=== PATIENT | male | born 1975 | race Caucasian/White ===

== ENCOUNTER 2021-06-09 14:19 | Emergency (ER) | payer BC ==
[2021-06-09] MEDS ORDERED: Sodium Chloride 0.9% 10 ML Syringe FLUSH PRN (14:54)
--- NOTE | 2021-06-09 14:54 | EDM.PDOC ---
ED HPI GENERAL MEDICAL PROBLEM - General Stated Complaint: ABD PAIN/RECTAL BLEEDING Time Seen by Provider: 06/09/21 14:45 Source of Information: Reports: Patient History Limitations: Reports: No Limitations - History of Present Illness INITIAL COMMENTS - FREE TEXT/NARRATIVE: Patient presented to the ED because of bright red blood in stool which started this morning. The pain is sharp and cramping, 2/10 with associated nausea but no vomiting. There is no fever, chills, cough/cold symptpms. No UTI s/s. He has a history of chronic low back pain and is taking advil 200 mg every morning. Abdomen Pain Score (Numeric/FACES): 2 - Related Data Allergies Allergy/AdvReac Type Severity Reaction Status Date / Time No Known Allergies Allergy Verified 06/09/21 15:00 Home Meds: Home Meds Azithromycin [Zithromax] 500 mg PO DAILY #5 tab 06/09/21 [Rx] metroNIDAZOLE [Flagyl] 500 mg PO Q8H #21 tab 06/09/21 [Rx] ED ROS GENERAL - Review of Systems Review Of Systems: See Below Constitutional: Reports: No Symptoms HEENT: Reports: No Symptoms Respiratory: Reports: No Symptoms Cardiovascular: Reports: No Symptoms Endocrine: Reports: No Symptoms GI/Abdominal: Reports: Abdominal Pain, Bloody Stool, Nausea : Reports: No Symptoms Musculoskeletal: Reports: No Symptoms Skin: Reports: No Symptoms Neurological: Reports: No Symptoms Psychiatric: Reports: No Symptoms Hematologic/Lymphatic: Reports: No Symptoms ED EXAM, GENERAL - Physical Exam Exam: See Below Exam Limited By: No Limitations General Appearance: Alert, No Apparent Distress Eye Exam: Bilateral Eye: PERRL Ears: Normal External Exam, Normal Canal, Normal TMs Nose: Normal Inspection, Normal Mucosa, No Blood Throat/Mouth: Normal Inspection, Normal Lips, Normal Teeth, Normal Oropharynx, Normal Voice Head: Atraumatic, Normocephalic Neck: Normal Inspection, Supple, Non-Tender, Full Range of Motion Respiratory/Chest: No Respiratory Distress, Lungs Clear, Normal Breath Sounds, No Accessory Muscle Use, Chest Non-Tender Cardiovascular: Normal Peripheral Pulses, Regular Rate, Rhythm, No Edema, No Gallop, No JVD, No Murmur, No Rub GI/Abdominal: Normal Bowel Sounds, Soft, No Organomegaly, No Distention, No Abnormal Bruit, No Mass, Pelvis Stable, Other (tenderness LLQ and Suprapubic area) Back Exam: Normal Inspection Extremities: Normal Inspection, Normal Range of Motion, Non-Tender, No Pedal Edema, Normal Capillary Refill Neurological: Alert, Oriented, CN II-XII Intact, Normal Cognition, Normal Gait, Normal Reflexes, No Motor/Sensory Deficits Course - Vital Signs Text/Narrative:: Lab/CT abd-pelvis result was result was reviewed and discussed with patient NS 1 L bolus - Orders/Labs/Meds Orders: Active Orders 24 hr Category Date Time Status Abdomen Pelvis w Cont [CT] Stat Exams 06/09/21 15:08 Taken AMYLASE [CHEM] Stat Lab 06/09/21 15:10 Results C DIFFICILE AG/TOXIN W/REFLEX [RM] Stat Lab 06/09/21 15:36 Received COMPREHENSIVE METABOLIC PN,CMP [CHEM] Stat Lab 06/09/21 15:10 Results CULTURE URINE [RM] Stat Lab 06/09/21 16:04 Ordered INR,PT,PROTHROMBIN TIME [COAG] Stat Lab 06/09/21 15:10 Received LIPASE [CHEM] Stat Lab 06/09/21 15:10 Received OVA + PARASITE EXAM Stat Lab 06/09/21 15:05 Ordered PTT,PARTIAL THROMBOPLSTIN TIME [COAG] Stat Lab 06/09/21 15:10 Received STOOL CULTURE Stat Lab 06/09/21 15:05 Ordered Sodium Chloride 0.9% [Normal Saline] 1,000 ml Med 06/09/21 15:15 Active IV ASDIRECTED Sodium Chloride 0.9% [Saline Flush] Med 06/09/21 14:54 Active 10 ml FLUSH ASDIRECTED PRN Saline Lock Insert [OM.PC] Routine Oth 06/09/21 14:54 Ordered Medication Orders Sodium Chloride (Normal Saline) 1,000 mls @ 999 mls/hr IV ASDIRECTED KATELYN Sodium Chloride (Sodium Chloride 0.9% 10 Ml Syringe) 10 ml FLUSH ASDIRECTED PRN PRN Reason: Keep Vein Open Labs: Laboratory Tests 06/09/21 06/09/21 06/09/21 Range/Units 15:10 15:10 15:36 WBC 9.8 (3.2-10.1) x10-3/uL RBC 4.91 (3.90-5.90) x10(6)uL Hgb 15.4 (12.9-17.7) g/dL Hct 45.2 (38.3-50.1) % MCV 92.2 (80.8-98.7) fL MCH 31.3 (27.0-33.3) pg MCHC 34.0 (28.7-35.3) g/dL RDW 13.1 (12.4-15.0) % Plt Count 271 (117-477) x10(3)uL MPV 8.4 (6.7-11.0) fL Neut % (Auto) 84.2 H (40.3-71.8) % Lymph % (Auto) 10.7 L (15.8-45.3) % Cottle % (Auto) 4.7 L (5.5-15.2) % Eos % (Auto) 0.3 (0.1-6.8) % Baso % (Auto) 0.1 L (0.3-3.8) % Neut # (Auto) 8.3 H (1.7-6.9) x10-3/uL Lymph # (Auto) 1.1 (0.5-4.5) x10-3/uL Cottle # (Auto) 0.5 (0.0-1.2) x10-3/uL Eos # (Auto) 0.0 (0.0-0.6) x10-3/uL Baso # (Auto) 0.0 (0.0-0.3) x10-3/uL Sodium 141 (135-145) mmol/L Potassium 4.3 (3.5-5.3) mmol/L Chloride 103 (100-110) mmol/L Carbon Dioxide 32 (21-32) mmol/L BUN 19 H (7-18) mg/dL Creatinine 1.3 (0.70-1.30) mg/dL Est Cr Clr Drug Dosing 73.66 mL/min Estimated GFR (MDRD) 60 (>60) BUN/Creatinine Ratio 14.6 (9-20) Glucose 110 (80-116) mg/dL Calcium 9.3 (8.6-10.2) mg/dL Urine Color Yellow (YELLOW) Urine Appearance Slightly cloudy (CLEAR) Urine pH 5.0 (5.0-6.5) Ur Specific [place] 1.020 (1.010-1.025) Urine Protein 30 H (NEGATIVE) mg/dL Urine Glucose (UA) Normal (NORMAL) mg/dL Urine Ketones 15 H (NEGATIVE) mg/dL Urine Occult Blood Large H (NEGATIVE) Urine Nitrite Negative (NEGATIVE) Urine Bilirubin Negative (NEGATIVE) Urine Urobilinogen Normal (NEGATIVE) mg/dL Ur Leukocyte Esterase Small H (NEGATIVE) Urine RBC 10-20 H (0-5) Urine WBC 5-10 H (0-5) Ur Squamous Epith Cells Occasional (NS,R,O) Urine Bacteria Few H (NS) Urine Mucus Moderate H (NS) Meds: Medications Generic Name Dose Route Start Last Admin Trade Name Freq PRN Reason Stop Dose Admin Sodium Chloride 1,000 mls @ 999 mls/hr 06/09/21 15:15 Normal Saline IV ASDIRECTED KATELYN Sodium Chloride 10 ml 06/09/21 14:54 Sodium Chloride 0.9% 10 Ml Syringe FLUSH ASDIRECTED PRN Keep Vein Open Discontinued Medications Generic Name Dose Route Start Last Admin Trade Name Freq PRN Reason Stop Dose Admin Iopamidol 100 ml 06/09/21 15:15 06/09/21 15:30 Iopamidol 755 Mg/Ml 100 Ml Bottle IV 06/09/21 15:16 100 ml . DIRECTED ONE Administration Departure - Departure Time of Disposition: 17:00 Disposition: Home, Self-Care 01 Condition: Good Clinical Impression: Colitis - Discharge Information Prescriptions: metroNIDAZOLE [Flagyl] 500 mg PO Q8H #21 tab Azithromycin [Zithromax] 500 mg PO DAILY #5 tab Referrals: PCP,None [Primary Care Provider] - Additional Instructions: Please read discharge instructions on infectious colitis Zithromax 500 mg daily for 5 days Flagyl/metronidazole 500 mg 3 times daily for 7 days Follow up with your doctor after a week, you might need a colonoscopy - My Orders Last 24 Hours: My Active Orders 06/09/21 14:54 Sodium Chloride 0.9% [Saline Flush] 10 ml FLUSH ASDIRECTED PRN Saline Lock Insert [OM.PC] Routine 06/09/21 15:05 OVA + PARASITE EXAM Stat STOOL CULTURE Stat 06/09/21 15:08 Abdomen Pelvis w Cont [CT] Stat 06/09/21 15:10 AMYLASE [CHEM] Stat COMPREHENSIVE METABOLIC PN,CMP [CHEM] Stat INR,PT,PROTHROMBIN TIME [COAG] Stat LIPASE [CHEM] Stat PTT,PARTIAL THROMBOPLSTIN TIME [COAG] Stat 06/09/21 15:15 Sodium Chloride 0.9% [Normal Saline] 1,000 ml IV ASDIRECTED 06/09/21 15:36 C DIFFICILE AG/TOXIN W/REFLEX [RM] Stat 06/09/21 16:04 CULTURE URINE [RM] Stat - Assessment/Plan Last 24 Hours: My Active Orders 06/09/21 14:54 Sodium Chloride 0.9% [Saline Flush] 10 ml FLUSH ASDIRECTED PRN Saline Lock Insert [OM.PC] Routine 06/09/21 15:05 OVA + PARASITE EXAM Stat STOOL CULTURE Stat 06/09/21 15:08 Abdomen Pelvis w Cont [CT] Stat 06/09/21 15:10 AMYLASE [CHEM] Stat COMPREHENSIVE METABOLIC PN,CMP [CHEM] Stat INR,PT,PROTHROMBIN TIME [COAG] Stat LIPASE [CHEM] Stat PTT,PARTIAL THROMBOPLSTIN TIME [COAG] Stat 06/09/21 15:15 Sodium Chloride 0.9% [Normal Saline] 1,000 ml IV ASDIRECTED 06/09/21 15:36 C DIFFICILE AG/TOXIN W/REFLEX [RM] Stat 06/09/21 16:04 CULTURE URINE [RM] Stat
[2021-06-09] MEDS ORDERED: Iopamidol 755 Mg/ML 100 ML Bottle IV ONE (15:15)
[2021-06-09] MEDS ORDERED: Sodium Chloride 0.9% 1,000 ML IV SCH (15:15)
--- NOTE | 2021-06-09 16:43 | CT ---
INDICATION: Central abdominal-suprapubic pain. CT ABDOMEN AND PELVIS WITH CONTRAST: Spiral 3.75 mm axial sections were obtained through the abdomen and pelvis with 100 mL [id number] at 2 mL/second) with sagittal and coronal reconstructions, 06/09/21- no comparisons TOTAL EXAM DLP: 370.91 mGy/cm. Lower lung hernandez and pleural spaces visualized appeared normal. The heart did not appear enlarged. A small low-density lesion is noted in the right lobe of the liver on axial image 27 and coronal image 51. This may represent a cystic lesion, measuring approximately 12 Hounsfield units. No other liver lesions were identified. No gallstones were demonstrated. Adrenal glands were unremarkable. The kidneys were unremarkable, with no evidence of obstructive uropathy. The spleen appeared normal. The pancreas was unremarkable - common bile duct was not enlarged. No retroperitoneal mass was seen. No gastric abnormality noted. The appendix was not definitely visualized. No evidence of free air or bowel obstruction was identified. There is suggestion of thickening of the wall of the descending colon in its mid to distal portion, raising question of colitis - indeterminate etiology. Otherwise, no organomegaly, mass lesions or free fluid collections were identified in the abdomen or pelvis. The urinary bladder was almost completely empty, making it difficult to exclude pathology. Degenerative changes and disc disease are noted, with relatively mild hypertrophic changes, but marked decrease in disc space at L5-S1. IMPRESSION: 1. Thickening of the wall of the descending colon, could represent COLITIS, but should be correlated clinically. 2. Degenerative changes with disc disease at L5-S1. 3. Probable cystic changes in the right lobe of the liver versus hemangioma. This measured approximately 13 mm. Report was called to Dr. Almaguer at 1550 hours, 06/09/21. [facility]
== END 2021-06-09 17:25 | disposition home or self-care (01) ==
LOC: FB.ED 14:19
DX: K52.9 Noninfective gastroenteritis and colitis, unspecified (principal)
CPT/HCPCS: 36415; 74177; 80053; 81001; 82150; 83690; 85025; 85610; 85730; 87045; 87046; 87086; 87230; 87427; 99284-25; J7030; Q9967